=== PATIENT | female | born 1995 | race Caucasian/White ===

== ENCOUNTER 2016-06-28 16:08 | Emergency (ER) | payer MEDICAID ==
[2016-06-28] MEDS ORDERED: PROVENTIL IH ONE (16:25)
[2016-06-28] MEDS ORDERED: ATROVENT IH ONE (16:25)
--- NOTE | 2016-06-28 16:36 | Emergency Department Report ---
HPI - General Chief Complaint: Adult Asthma Time Seen by Provider: 06/28/16 16:19 - HPI HPI: Room 18 The patient is a 20-year-old female presenting with a chief complaint of shortness of breath. The patient has history of asthma states for the past several weeks she has had intermittent bouts of asthma exacerbation. The patient states her symptoms returned again today with wheezing and chest tightness that feels consistent with her previous asthma. The patient was administered Solu-Medrol and magnesium by EMS prior to arrival in addition to albuterol nebulizers and she states she feels improved. Location: Lungs Duration: see above Quality: Tightness consistent with asthma Severity: Moderate Modifying factors: [see above] Context: [see above] Mode of transportation: EMS ED Past Medical Hx - Past Medical History Previous Medical History?: Yes Hx Asthma: Yes Additional medical history: osteoporosis. vocal cord dysfunction. intubation x5. echmo in April - Surgical History Past Surgical History?: Yes Additional Surgical History: throat dilation - Family History Family history: no significant - Social History Smoking Status: Never Smoker Substance Use Type: None - Medications Home Medications: Home Medications Medication Instructions Recorded Confirmed Last Taken Type ALBUTEROL Inhaler 2.5 mg INHALATION PRN PRN #30 06/28/16 Unknown Rx Atrovent NEB 1.29 gm INHALATION PRN PRN #30 06/28/16 Unknown Rx Flonase 50 mcg INHALATION DAILY 06/28/16 06/28/16 Unknown History Loratadine 10 mg PO ONCE 06/28/16 06/28/16 Unknown History Methazolamide 5 mg PO ONCE 06/28/16 06/28/16 Unknown History Prednisone [predniSONE 10 mg 10 mg PO .TAPER #1 tab.ds.pk 06/28/16 Unknown Rx (6-Day Pack, 21 Tabs)] Spiriva Respimat 1.25 mcg INHALATION ONCE 06/28/16 06/28/16 Unknown History Symbicort 160-4.5 (Nf) 160 mcg INHALATION BID 06/28/16 06/28/16 Unknown History Ventolin HFA 90 mcg INHALATION Q4-6H #1 06/28/16 Unknown Rx Xopenex Hfa 45 mcg INHALATION ONCE 06/28/16 06/28/16 Unknown History ED Review of Systems ROS: Stated complaint: AMELIA Other details as noted in HPI Comment: All other systems reviewed and negative Constitutional: denies: chills, fever Eyes: denies: eye pain, eye discharge, vision change ENT: denies: ear pain, throat pain Respiratory: cough, shortness of breath, wheezing Cardiovascular: denies: chest pain, palpitations Endocrine: no symptoms reported Gastrointestinal: denies: abdominal pain, nausea, diarrhea Genitourinary: denies: urgency, dysuria, discharge Musculoskeletal: denies: back pain, joint swelling, arthralgia Skin: denies: rash, lesions Neurological: denies: headache, weakness, paresthesias Psychiatric: denies: anxiety, depression Hematological/Lymphatic: denies: easy bleeding, easy bruising Physical Exam - Physical Exam Vital Signs: Vital Signs 06/28/16 16:13 Temperature 97.6 F Pulse Rate 117 H Blood Pressure 112/76 O2 Sat by Pulse 100 Oximetry Physical Exam: GENERAL: The patient is well-developed well-nourished female sitting on stretcher receiving nebulizer not appearing to be in acute distress. [] HEENT: Normocephalic. Atraumatic. Extraocular motions are intact. Patient has moist mucous membranes. NECK: Supple. Regular midline CHEST/LUNGS: Diffuse wheezing and rhonchi. There is no respiratory distress noted. HEART/CARDIOVASCULAR: Regular. There is tachycardia. There is no gallop rub or murmur. ABDOMEN: Abdomen is soft, nontender. Patient has normal bowel sounds. There is no abdominal distention. SKIN: There is no rash. There is no edema. There is no diaphoresis. NEURO: The patient is awake, alert, and oriented. The patient is cooperative. The patient has normal speech MUSCULOSKELETAL: There is no evidence of acute injury. ED Course Vital Signs 06/28/16 16:13 Temperature 97.6 F Pulse Rate 117 H Blood Pressure 112/76 O2 Sat by Pulse 100 Oximetry - Reevaluation(s) Reevaluation #1: 06/28/16 18:05 Patient states she feels improved. Lungs clear to auscultation bilaterally ED Medical Decision Making - Radiology Data Radiology results: image reviewed (chest x-ray) interpreted by me: Chest x-ray-no focal infiltrates, no pneumothorax - Differential Diagnosis acute asthma exacerbation, pneumonia, pneumothorax Critical care attestation.: If time is entered above; I have spent that time in minutes in the direct care of this critically ill patient, excluding procedure time. ED Disposition Clinical Impression: Acute asthma exacerbation, Shortness of breath Disposition: DISCHARGED TO HOME OR SELFCARE Is pt being admited?: No Does the pt Need Aspirin: No Condition: Stable Instructions: Asthma (ED) Additional Instructions: Return to the emergency department immediately should you develop worsening symptoms, fever, inability to tolerate food or liquid or any other concerns. Prescriptions: ALBUTEROL Inhaler 2.5 mg INHALATION PRN PRN #30 PRN Reason: Wheezing Atrovent NEB 1.29 gm INHALATION PRN PRN #30 PRN Reason: Wheezing Prednisone [predniSONE 10 mg (6-Day Pack, 21 Tabs)] 10 mg PO .TAPER #1 tab.ds.pk Ventolin HFA 90 mcg INHALATION Q4-6H #1 Referrals: PRIMARY CARE, [Primary Care Provider] - 3-5 Days Time of Disposition: 18:08
[2016-06-28 18:36] VITALS: BP 115/71
--- NOTE | 2016-06-29 08:40 | XRay Report ---
PORTABLE CHEST INDICATION: Shortness of breath. COMPARISON: None similar at this institution. FINDINGS: Portable, frontal chest radiograph demonstrates normal cardiomediastinal silhouette. Slightly crowded lung markings toward the bases with subtle nonspecific haziness, in part felt related to overlying breast tissues. No pleural effusions or CHF. EKG leads and some other extrinsic artifacts. Slight mid to lower thoracic dextrocurvature. CONCLUSION: No definite acute chest process, as described. Thank you for the opportunity to participate in this patient's care.
== END 2016-06-28 18:35 | disposition home or self-care (01) ==
LOC: ED 16:08
DX: J45.901 Unspecified asthma with (acute) exacerbation (principal)
CPT/HCPCS: 71010; 94640

== ENCOUNTER 2016-07-21 23:04 | Emergency (ER) | payer MEDICAID ==
[2016-07-22] MEDS ORDERED: XOPENEX IH ONE ×2 (00:30→00:36)
[2016-07-22 00:32] VITALS: BP 127/87
[2016-07-22] MEDS ORDERED: PROVENTIL IH ONE (00:33)
--- NOTE | 2016-07-22 19:05 | ED Elopement Review ---
ED Pt Elopement review - Call Back decision Pt Call Back Decision: Pt to F/U with PMD
== END 2016-07-22 01:05 | disposition left against medical advice (07) ==
LOC: ED 23:04
DX: J45.909 Unspecified asthma, uncomplicated (principal); R06.00 Dyspnea, unspecified; Z88.2 Allergy status to sulfonamides; Z88.8 Allergy status to other drugs, medicaments and biological substances; Z53.21 Procedure and treatment not carried out due to patient leaving prior to being seen by health care provider
CPT/HCPCS: 94640